=== PATIENT | female | born 1965 | race Caucasian/White ===

== ENCOUNTER 2018-05-12 13:07 | Emergency (ER) | payer MEDICAID ==
[~2018-05-12] VITALS: Ht 165.1 cm; Wt 93.9 kg
--- NOTE | 2018-05-12 13:13 | NUR ---
[id number] FROM HOME: GENERALIZED WEAKNESS, DIZZINESS ON/OFF x 8 MONTHS. A/OX3, BREATHING EVEN AND UNLABORED. NO SOB, NAD, VITALS STABLE. SAFETY AND COMFORT MEASURES IN PLACE. AWAITING MD ORDERS.
--- NOTE | 2018-05-12 13:50 | NUR ---
NEW IV STARTED ON RAC, 20G. BLOOD DRAWN AND SENT TO LAB.
[2018-05-12 14:04] LABS: EOSINOPHILS % (AUTO) 0.3 % (0.0-6.0); HEMATOCRIT 36 % (33-45); HEMOGLOBIN 12.2 g/dL (11.5-14.8); LYMPHOCYTES # (AUTO) 1.7 /CMM (0.8-4.8); LYMPHOCYTES % (AUTO) 20.6 % (20.0-44.0); MEAN CORPUSCULAR HEMOGLOBIN 31 PG (26.0-33.0); MEAN CORPUSCULAR HGB CONC 34 g/dl (31.0-36.0); MEAN CORPUSCULAR VOLUME 92 fL (82-100); MONOCYTES # (AUTO) 0.3 /CMM (0.1-1.30); NEUTROPHILS # (AUTO) 6.4 /CMM (1.8-8.9); NEUTROPHILS % (AUTO) 75.1 % (43.0-81.0); PLATELET COUNT (AUTO) 261 /CMM (150-450); RDW COEFFICIENT OF VARIATION 15.2 (11.5-15.0); RED BLOOD CELL COUNT(AUTO) 3.95 MIL/uL (4.0-5.2); WHITE BLOOD COUNT (AUTO) 8.5 K/uL (4.3-11.0)
[2018-05-12 14:18] LABS: CALCIUM, SERUM 9.3 mg/dL (8.5-10.1); CARBON DIOXIDE 27 mmol/L (21-32); CHLORIDE 102 mmol/L (98-107); CREATININE 0.7 mg/dL (0.6-1.3); GLUCOSE 105 mg/dL (74-106); POTASSIUM 3.4 mmol/L (3.5-5.1); SODIUM SERUM 138 mmol/L (136-145); UREA NITROGEN, BLOOD 7 mg/dL (7-18)
[2018-05-12 14:28] LABS: TROPONIN I < 0.017 ng/mL (0.00-0.056)
[2018-05-12] MEDS ORDERED: POTASSIUM CHLORIDE 20 MEQ TAB.PRT.SR PO ONE ×2 (14:39→15:00)
[2018-05-12 15:47] VITALS: BP 148/74
--- NOTE | 2018-05-12 15:48 | NUR ---
IV removed. Catheter intact and site benign. Pressure and 4x4 applied to site. No bleeding noted. Patient discharged to home in stable condition. Written and verbal after care instructions given. Patient verbalizes understanding of instruction.
== END 2018-05-12 15:48 | disposition home or self-care (01) ==
LOC: ER 13:09
DX: R42 Dizziness and giddiness (principal); R00.2 Palpitations; R55 Syncope and collapse; I10 Essential (primary) hypertension
CPT/HCPCS: 36415; 71045; 80048; 84484; 85025; 93005; 99285; A4606; Z7610

== ENCOUNTER 2023-01-13 11:57 | Emergency (ER) | payer MEDICAID, OTHER ==
[~2023-01-13] VITALS: Ht 165.1 cm; Wt 103.4 kg
--- NOTE | 2023-01-13 12:05 | NUR ---
RECEIVED PT 57 YRS FEMALE FELL AND TRIP C/O PAIN ON LT HAND PAIN ON LT WRIST
--- NOTE | 2023-01-13 12:10 | NUR ---
LT WRIST WITH DIFFORMITY
[2023-01-13] MEDS ORDERED: IBUPROFEN 400 MG TABLET PO ONE (12:30)
[2023-01-13] MEDS ORDERED: IBUPROFEN 400 MG TABLET ONE (12:35)
--- NOTE | 2023-01-13 13:20 | NUR ---
XRAY DONE ON LT WRIST
[2023-01-13] MEDS ORDERED: BUPIVACAINE 0.25% 75 MG/30 ML VIAL IJ ONE (13:30)
[2023-01-13] MEDS ORDERED: BUPIVACAINE 0.25% 75 MG/30 ML VIAL ONE (13:35)
[2023-01-13] MEDS ORDERED: PROPOFOL 200 MG/20 ML VIAL IV ONE ×2 (14:30→15:30)
--- NOTE | 2023-01-13 14:30 | NUR ---
PT SIGN CONSENT FOR PROCEDURE SEDATION AND CLOSED REDUCTION OF LEFT WRIST FRACTURE DISLOCATION FULLY UNDER STOOD PROCDURE
[2023-01-13] MEDS ORDERED: PROPOFOL 20 ML IV ONE (14:54)
--- NOTE | 2023-01-13 15:05 | NUR ---
MODERATE SEDATION AT BED SIDE DR. RAMIREZ AND JANNET STUDENT AND RT AND NURSE RN AT BED SIDE
--- NOTE | 2023-01-13 15:15 | NUR ---
FERMIN MILLER BY ROSE MARY ARREOLA AND DR. RAMIREZ AT BED SIDE
--- NOTE | 2023-01-13 15:20 | NUR ---
PROCEDURE DONE AT DED SIDE TOLORATED WILL FULL AWAKE AND ALERT
[2023-01-13] MEDS ORDERED: IBUP-1955 PO (16:28)
--- NOTE | 2023-01-13 16:45 | NUR ---
IV removed. Catheter intact and site benign. Pressure and 4x4 applied to site. No bleeding noted.
--- NOTE | 2023-01-13 16:48 | NUR ---
Patient discharged to home in stable condition. Written and verbal after care instructions given. Patient verbalizes understanding of instruction.
[2023-01-13 16:54] VITALS: BP 156/86
== END 2023-01-13 16:56 | disposition home or self-care (01) ==
LOC: ER 12:15
DX: S52.592A Other fractures of lower end of left radius, initial encounter for closed fracture (principal); S63.015A Dislocation of distal radioulnar joint of left wrist, initial encounter; I10 Essential (primary) hypertension; Z79.1 Long term (current) use of non-steroidal anti-inflammatories (NSAID); W18.30XA Fall on same level, unspecified, initial encounter; Y93.89 Activity, other specified; Y92.89 Other specified places as the place of occurrence of the external cause; Y99.8 Other external cause status
CPT/HCPCS: 25605; 99285; 99152; 73080; 73110 ×2; J2704; J3490; G0500